=== PATIENT | male | born 1945 | race Caucasian/White ===

== ENCOUNTER → 2017-02-14 | Outpatient (CLI) | payer MEDICARE, BC ==
[2017-02-14 08:25] LABS: Basophils # (A) 0.1 k/uL (0-0.2); Basophils % (A) 1 %; CH 30.7; CHCM 32.6; Eosinophils # (A) 0.5 k/uL (0-0.7); Eosinophils % (A) 7 %; HCT 47.1 % (39.0-53.0); HDW 2.35; HGB 15.7 gm/dL (13.0-17.5); Luc # (Auto) 0.17; Luc % (Auto) 2; Lymphocytes # (A) 2.8 k/uL (1.0-4.8); Lymphocytes % (A) 36 %; MCH 31.6 pg (25.0-35.0); MCHC 33.3 g/dL (31.0-37.0); MCV 94.8 fL (80.0-100.0); Mean Platelet Volume 6.4; Monocytes # (A) 0.6 k/uL (0-1.0); Monocytes % (A) 8 %; Neutrophils # (A) 3.6 k/uL (1.3-7.7); Neutrophils % (A) 47 %; RBC 4.97 m/uL (4.30-5.90); WBC 7.7 k/uL (3.8-10.6); WBC (Perox) 7.56
[2017-02-14 08:47] LABS: ALT 57 U/L (21-72); AST 40 U/L (17-59); Alkaline Phosphatase 49 U/L (38-126); Anion Gap 11 mmol/L; Blood Urea Nitrogen 12 mg/dL (9-20); Calcium 9.2 mg/dL (8.4-10.2); Carbon Dioxide 26 mmol/L (22-30); Chloride 103 mmol/L (98-107); Cholesterol 195 mg/dL (<200); Glucose 90 mg/dL (74-99); HDL Cholesterol 53 mg/dL (40-60); Non-African American GFR(MDRD) >60 (>60 ml/min/1.73 sqM); Potassium 4.3 mmol/L (3.5-5.1); Sodium 140 mmol/L (137-145); Total Bilirubin 0.5 mg/dL (0.2-1.3); Total Protein 6.9 g/dL (6.3-8.2)
== END | disposition home or self-care (01) ==
LOC: LABWHC1 07:54
PROVIDERS: ATTEND Physician Assistant
DX: Z00.00 Encounter for general adult medical examination without abnormal findings (principal); E78.5 Hyperlipidemia, unspecified; E55.9 Vitamin D deficiency, unspecified; I10 Essential (primary) hypertension; Z12.5 Encounter for screening for malignant neoplasm of prostate; Z13.89 Encounter for screening for other disorder
CPT/HCPCS: 36415; 80053; 80061; 82306; 85025; 86803

== ENCOUNTER → 2018-02-14 | Outpatient (CLI) | payer MEDICARE, BC ==
[2018-02-14 10:04] LABS: Basophils # (A) 0.1 k/uL (0-0.2); Basophils % (A) 1 %; Eosinophils # (A) 0.5 k/uL (0-0.7); Eosinophils % (A) 8 %; HCT 46.3 % (39.0-53.0); HGB 15.2 gm/dL (13.0-17.5); Lymphocytes # (A) 2.2 k/uL (1.0-4.8); Lymphocytes % (A) 34 %; MCHC 32.7 g/dL (31.0-37.0); MCV 91.6 fL (80.0-100.0); Mean Platelet Volume 6.4; Monocytes # (A) 0.6 k/uL (0-1.0); Monocytes % (A) 8 %; Neutrophils # (A) 3.1 k/uL (1.3-7.7); Neutrophils % (A) 48 %; Platelet Count 329 k/uL (150-450); RBC 5.06 m/uL (4.30-5.90); RDW 13.4 % (11.5-15.5); WBC 6.5 k/uL (3.8-10.6)
[2018-02-14 10:55] LABS: Chloride 103 mmol/L (98-107)
[2018-02-14 10:57] LABS: ALT 56 U/L (21-72); AST 53 U/L (17-59); Alkaline Phosphatase 45 U/L (38-126); Anion Gap 10 mmol/L; Blood Urea Nitrogen 10 mg/dL (9-20); Calcium 9.2 mg/dL (8.4-10.2); Carbon Dioxide 28 mmol/L (22-30); Cholesterol 197 mg/dL (<200); Glucose 90 mg/dL (74-99); HDL Cholesterol 49 mg/dL (40-60); LDL Cholesterol,Calculated 129 mg/dL (0-99); Potassium 4.3 mmol/L (3.5-5.1); Sodium 141 mmol/L (137-145); Total Bilirubin 0.6 mg/dL (0.2-1.3); Total Protein 6.9 g/dL (6.3-8.2); Triglycerides 93 mg/dL (<150)
== END | disposition home or self-care (01) ==
LOC: LABWHC1 08:09
PROVIDERS: ATTEND Internal Medicine
DX: Z00.00 Encounter for general adult medical examination without abnormal findings (principal); I10 Essential (primary) hypertension
CPT/HCPCS: 36415; 80053; 80061; 85025

== ENCOUNTER → 2018-07-09 | Outpatient (CLI) | payer MEDICARE, BC ==
--- NOTE | 2018-07-09 15:08 | ECHOS ---
STRESS ECHOCARDIOGRAM INDICATIONS: Chest pain. MEDICATIONS: Simvastatin, losartan, baby aspirin, vitamin D3. BASELINE HEART RATE: 69 BASELINE BLOOD PRESSURE: 136/69 MAXIMUM HEART RATE: 143 MAXIMUM BLOOD PRESSURE: 206/72 85% MPHR: 128 100% MPHR: 150 METS: 7.1 MAXIMUM STAGE REACHED: 2 TOTAL EXERCISE TIME: 6:00 CLINICAL INFORMATION: Baseline rhythm sinus mechanism rate of 69, normal axis and intervals. Normal echocardiogram. Baseline blood pressure 136/69 mmHg. Patient exercised on Zan protocol for 6 minute reaching peak rate of 143 beats per minute which is above his 85% maximum predicted heart rate. Peak blood pressure 206/72 mmHg. Test was terminated secondary to fatigue. There was no chest pain. Electrocardiograph monitoring revealed no evidence of diagnostic ischemic ST deviation. FINDINGS: Baseline echocardiogram revealed normal wall motion. At peak exercise, there was normal wall motion augmentation with no hypokinesis or dyskinesis. CONCLUSION: 1. Average exercise tolerance with normal EKG response to exercise. 2. Normal stress echocardiogram with no evidence of stress-induced ischemia. MMODL / IJN: [id number] / [facility]
== END | disposition home or self-care (01) ==
LOC: RADNMMAIN 09:38
PROVIDERS: ATTEND Internal Medicine
DX: R07.9 Chest pain, unspecified (principal)
CPT/HCPCS: 93351

== ENCOUNTER → 2019-02-22 | Outpatient (CLI) | payer MEDICARE, BC ==
[2019-02-22 08:09] LABS: Appearance,Urine Clear (Clear); Bilirubin,Urine Negative (Negative); Blood,Urine Negative (Negative); Color,Urine Yellow; Glucose,Urine (UA) Negative (Negative); Ketones,Urine Negative (Negative); Leukocyte Esterase,Urine Negative (Negative); Nitrite,Urine Negative (Negative); Protein,Urine Negative (Negative); Specific Gravity,Urine 1.015 (1.001-1.035); Urobilinogen,Urine <2.0 mg/dL (<2.0)
[2019-02-22 08:10] LABS: Basophils % (A) 1 %; Eosinophils # (A) 0.5 k/uL (0-0.7); Eosinophils % (A) 6 %; HCT 47.9 % (39.0-53.0); Lymphocytes # (A) 2.5 k/uL (1.0-4.8); Lymphocytes % (A) 31 %; MCH 29.7 pg (25.0-35.0); MCHC 31.4 g/dL (31.0-37.0); MCV 94.7 fL (80.0-100.0); Mean Platelet Volume 6.3; Monocytes # (A) 0.6 k/uL (0-1.0); Monocytes % (A) 8 %; Neutrophils # (A) 4.3 k/uL (1.3-7.7); Neutrophils % (A) 52 %; Platelet Count 346 k/uL (150-450); RBC 5.06 m/uL (4.30-5.90); RDW 13.4 % (11.5-15.5); WBC 8.2 k/uL (3.8-10.6)
[2019-02-22 15:39] LABS: African American GFR (CKD) 99.2 (60.0-200.0); Albumin 4.5 g/dL (3.80-4.90); Albumin/Globulin Ratio 2.14 (1.60-3.17); Anion Gap 8.1 mmol/L (4.00-12.00); BUN/Creat Ratio 12.22 Ratio (12.00-20.00); Calcium 9.2 mg/dL (8.7-10.3); Carbon Dioxide 27.9 mmol/L (21.6-31.8); Chol/HDL Ratio 3.62; Globulin 2.1 g/dL (1.6-3.3); LDL Cholesterol,Calculated 116.6 mg/dL (0.0-131.0); Total Bilirubin 0.5 mg/dL (0.3-1.2); Total Protein 6.6 g/dL (6.2-8.2); VLDL Calculation 19.4 mg/dL (5.00-40.00)
== END ==
LOC: LABWHC1 07:36
PROVIDERS: ATTEND Internal Medicine
DX: I10 Essential (primary) hypertension (principal); E55.9 Vitamin D deficiency, unspecified
CPT/HCPCS: 36415; 80053; 80061; 81003; 82306; 85025

== ENCOUNTER → 2019-04-23 | Outpatient (CLI) | payer MEDICARE, BC ==
--- NOTE | 2019-04-23 12:10 | US ---
EXAMINATION TYPE: US abdomen complete DATE OF EXAM: 04/23/2019 COMPARISON: NONE CLINICAL HISTORY: R07.89 CHEST PAIN. Pt states indigestion and right shoulder pain EXAM MEASUREMENTS: Liver Length: 14.5 cm Gallbladder Wall: 0.3 cm CBD: 0.4 cm Spleen: 9.1 cm Right Kidney: 11.1 x 5.2 x 5.5 cm Left Kidney: 11.1 x 6.0 x 5.2 cm Pancreas: Obscured by bowel gas Liver: There is increased echogenicity of the hepatic parenchyma with diminished visualization of th e portal triads most commonly relating to hepatic steatosis and limiting evaluation for underlying he patic masses. Gallbladder: Appeared wnl Evidence for sonographic Chavez's sign: No CBD: wnl Spleen: wnl Right Kidney: Cyst upper pole= 5.5 x 5.1 x 5.5 cm Left Kidney: wnl Upper IVC: wnl Abd Aorta: Proximal portion obscured by overlying bowel gas, mid and distal appeared wnl The intrahepatic portion of the IVC and proximal abdominal aorta are within normal limits. There is no evidence of cholelithiasis. Common bile duct is unremarkable. The visualized portions of the patten creas are homogenous. The spleen is unremarkable. Kidneys are symmetric and free of hydronephrosis. . IMPRESSION: 1. Sonographic findings most commonly related to hepatic steatosis. Correlate with liver function antonia ts. 2. No sonographic evidence of cholelithiasis nor acute cholecystitis. 3. Benign-appearing right renal cyst measures up to 5.5 cm. 4. Obscuration of the pancreas by overlying bowel gas.
== END | disposition home or self-care (01) ==
LOC: RADUSWWP 10:59
PROVIDERS: ATTEND Family Medicine
DX: N28.1 Cyst of kidney, acquired (principal)
CPT/HCPCS: 76700

== ENCOUNTER → 2021-03-04 | Outpatient (CLI) | payer MEDICARE, BC ==
[2021-03-04 09:36] LABS: Appearance,Urine Clear (Clear); Bilirubin,Urine Negative (Negative); Blood,Urine Negative (Negative); Color,Urine Yellow; Glucose,Urine (UA) Negative (Negative); Ketones,Urine Negative (Negative); Leukocyte Esterase,Urine Negative (Negative); Nitrite,Urine Negative (Negative); Protein,Urine Negative (Negative); Specific Gravity,Urine 1.016 (1.001-1.035); Urobilinogen,Urine <2.0 mg/dL (<2.0)
[2021-03-04 21:30] LABS: Basophils # (A) 0.06 X 10*3/uL (0.00-0.10); Basophils % (A) 0.8 %; Eosinophils # (A) 0.55 X 10*3/uL (0.04-0.35); Eosinophils % (A) 7.3 %; HCT 49.5 % (39.6-50.0); HGB 15.6 g/dL (13.0-17.0); Lymphocytes # (A) 2.51 X 10*3/uL (0.90-5.00); Lymphocytes % (A) 33.2 %; MCH 30.3 pg (27.0-32.0); MCHC 31.5 g/dL (32.0-37.0); MCV 96.1 fL (80.0-97.0); Mean Platelet Volume 9.7 fL (9.5-12.2); Monocytes # (A) 0.97 X 10*3/uL (0.20-1.00); Monocytes % (A) 12.8 %; Neutrophils # (A) 3.42 X 10*3/uL (1.80-7.70); Neutrophils % (A) 45.4 %; Platelet Count 359 X 10*3/uL (140-440); RBC 5.15 X 10*6/uL (4.40-5.60); RDW 13.7 % (11.5-14.5); WBC 7.55 X 10*3/uL (4.50-10.00)
[2021-03-05 00:27] LABS: Albumin 4.2 g/dL (3.8-4.9); Albumin/Globulin Ratio 1.67 (1.60-3.17); Anion Gap 19.3 mmol/L (4.00-12.00); BUN/Creat Ratio 13.04 Ratio (12.00-20.00); Blood Urea Nitrogen 10.6 mg/dL (9.0-27.0); Calcium 9.2 mg/dL (8.7-10.3); Carbon Dioxide 15.6 mmol/L (21.6-31.8); Chol/HDL Ratio 4.52 Ratio; Globulin 2.5 g/dL (1.6-3.3); HDL Cholesterol 46.7 mg/dL (40.00-60.00); Potassium 4.5 mmol/L (3.5-5.5); Prostate Specific Antigen 1.8 ng/mL (0.00-6.50); T4, Free (Free Thyroxine) 0.96 ng/dL (0.800-1.800); Total Bilirubin 0.4 mg/dL (0.30-1.20); Total Protein 6.7 g/dL (6.2-8.2); Triglycerides 86.7 mg/dL (0.00-149.00); VLDL Calculation 17.34 mg/dL (5.00-40.00)
== END | disposition home or self-care (01) ==
LOC: LABWHC1 08:14
PROVIDERS: ATTEND Physician Assistant
DX: Z00.01 Encounter for general adult medical examination with abnormal findings (principal)
CPT/HCPCS: 36415; 80053; 80061; 81003; 82306; 84153; 84439; 84443; 85025

== ENCOUNTER 2021-10-13 09:11 | Emergency (ER) | payer MEDICARE, BC ==
[2021-10-13 09:17] VITALS: TEMP 98.1
--- NOTE | 2021-10-13 09:50 | ED ---
General Adult HPI - General Chief complaint: Recheck/Abnormal Lab/Rx Stated complaint: abn EKG Time Seen by Provider: 10/13/21 09:13 Source: patient, RN notes reviewed, old records reviewed Mode of arrival: ambulatory Limitations: no limitations - History of Present Illness Initial comments: 75-year-old male presents for evaluation from the urgent care. Patient was seen yesterday had EKG and laboratory testing performed and then subsequently return to the urgent care this morning. He had been sent to the emergency department with abnormal EKG. He had initially presented with cough and cold symptoms for the past 10 days. He was treated with steroids and antibiotics. No fever. No significant dyspnea. No central chest pain but he does have a upper chest tightness. - Related Data Home Medications Medication Instructions Recorded Confirmed Simvastatin [Zocor] 20 mg PO DAILY 07/25/15 10/13/21 Ascorbic Acid [Vitamin C] 500 mg PO DAILY 10/13/21 10/13/21 Aspirin EC [Ecotrin Low Dose] 81 mg PO DAILY 10/13/21 10/13/21 Cholecalciferol (Vitamin D3) 75 mcg PO DAILY 10/13/21 10/13/21 [Vitamin D3 (3000 Iu)] FLUoxetine HCL [PROzac] 10 mg PO DAILY 10/13/21 10/13/21 Famotidine 40 mg PO DAILY 10/13/21 10/13/21 Losartan Potassium [Cozaar] 50 mg PO DAILY 10/13/21 10/13/21 Multivitamins, Thera [Multivitamin 1 tab PO DAILY 10/13/21 10/13/21 (formulary)] Vitamin E [Vitamin E (1000 Iu = 1,000 unit PO DAILY 10/13/21 10/13/21 450 MG)] Allergies Allergy/AdvReac Type Severity Reaction Status Date / Time sulfamethoxazole Allergy Unknown Verified 10/13/21 10:42 [From Bactrim] trimethoprim [From Bactrim] Allergy Unknown Verified 10/13/21 10:42 Review of Systems ROS Statement: Those systems with pertinent positive or pertinent negative responses have been documented in the HPI. ROS Other: All systems not noted in ROS Statement are negative. Past Medical History Past Medical History: Hyperlipidemia, Hypertension History of Any Multi-Drug Resistant Organisms: None Reported Additional Past Surgical History / Comment(s): nasal surgery Past Psychological History: No Psychological Hx Reported Smoking Status: Never smoker Past Alcohol Use History: None Reported Past Drug Use History: None Reported General Exam Limitations: no limitations General appearance: alert, in no apparent distress Head exam: Present: atraumatic, normocephalic Eye exam: Present: normal appearance, PERRL ENT exam: Present: normal exam Neck exam: Present: normal inspection. Absent: tenderness, meningismus Respiratory exam: Present: normal lung sounds bilaterally. Absent: respiratory distress, wheezes, rales Cardiovascular Exam: Present: regular rate, normal rhythm GI/Abdominal exam: Present: soft. Absent: distended, tenderness, guarding Extremities exam: Present: normal inspection, normal capillary refill. Absent: pedal edema, joint swelling Neurological exam: Present: alert, oriented X3, CN II-XII intact. Absent: motor sensory deficit Psychiatric exam: Present: normal affect, normal mood Skin exam: Present: warm, dry, intact. Absent: cyanosis, diaphoretic Course Vital Signs 10/13/21 09:13 Temperature 98.1 F Pulse Rate 73 Respiratory 20 Rate Blood Pressure 180/82 O2 Sat by Pulse 98 Oximetry EKG Findings - EKG Comments: EKG Findings:: EKG: Ectopic atrial rhythm, P waves are downgoing, rate of 68, CA interval is 172, QRS duration 87, QTC 408, no ST segment changes. Medical Decision Making - Medical Decision Making 75-year-old male with cough and cold symptoms for the past 10 days, presenting for evaluation. Patient is well-appearing. No respiratory distress. Patient presented with abnormal EKG. He does have an ectopic rhythm without definitive ischemic changes. His symptoms 7 present for 10 days. He has a mild leukocytosis which is likely secondary to steroid use. He has normal white lites, negative troponin, negative: Admitted. I discussed case with Dr. Roberts regarding the ectopic rhythm, nothing to do at this time. Patient will follow- up with the primary care physician. Return parameters discussed. - Lab Data Result diagrams: 10/13/21 09:36 10/13/21 09:36 Lab Results 10/13/21 10/13/21 10/13/21 Range/Units 09:36 09:36 09:36 WBC 14.8 H (3.8-10.6) k/uL RBC 5.52 (4.30-5.90) m/uL Hgb 16.9 (13.0-17.5) gm/dL Hct 52.5 (39.0-53.0) % MCV 95.0 (80.0-100.0) fL MCH 30.6 (25.0-35.0) pg MCHC 32.2 (31.0-37.0) g/dL RDW 13.7 (11.5-15.5) % Plt Count 412 (150-450) k/uL MPV 7.3 Neutrophils % 58 % Lymphocytes % 28 % Monocytes % 9 % Eosinophils % 2 % Basophils % 1 % Neutrophils # 8.6 H (1.3-7.7) k/uL Lymphocytes # 4.2 (1.0-4.8) k/uL Monocytes # 1.3 H (0-1.0) k/uL Eosinophils # 0.4 (0-0.7) k/uL Basophils # 0.1 (0-0.2) k/uL PT 10.9 (9.0-12.0) sec INR 1.0 (<1.2) APTT 23.8 (22.0-30.0) sec Sodium 137 (137-145) mmol/L Potassium 4.3 (3.5-5.1) mmol/L Chloride 99 (98-107) mmol/L Carbon Dioxide 28 (22-30) mmol/L Anion Gap 10 mmol/L BUN 18 (9-20) mg/dL Creatinine 0.84 (0.66-1.25) mg/dL Est GFR (CKD-EPI)AfAm >90 (>60 ml/min/1.73 sqM) Est GFR (CKD-EPI)NonAf 87 (>60 ml/min/1.73 sqM) Glucose 84 (74-99) mg/dL Calcium 9.0 (8.4-10.2) mg/dL Magnesium 2.2 (1.6-2.3) mg/dL Total Bilirubin 0.5 (0.2-1.3) mg/dL AST 33 (17-59) U/L ALT 53 H (4-49) U/L Alkaline Phosphatase 58 (38-126) U/L CK-MB (CK-2) (0.0-2.4) ng/mL Troponin I (0.000-0.034) ng/mL NT-Pro-B Natriuret Pep pg/mL Total Protein 7.3 (6.3-8.2) g/dL Albumin 4.3 (3.5-5.0) g/dL Coronavirus (PCR) (Not Detectd) 10/13/21 10/13/21 10/13/21 Range/Units 09:36 09:36 09:36 WBC (3.8-10.6) k/uL RBC (4.30-5.90) m/uL Hgb (13.0-17.5) gm/dL Hct (39.0-53.0) % MCV (80.0-100.0) fL MCH (25.0-35.0) pg MCHC (31.0-37.0) g/dL RDW (11.5-15.5) % Plt Count (150-450) k/uL MPV Neutrophils % % Lymphocytes % % Monocytes % % Eosinophils % % Basophils % % Neutrophils # (1.3-7.7) k/uL Lymphocytes # (1.0-4.8) k/uL Monocytes # (0-1.0) k/uL Eosinophils # (0-0.7) k/uL Basophils # (0-0.2) k/uL PT (9.0-12.0) sec INR (<1.2) APTT (22.0-30.0) sec Sodium (137-145) mmol/L Potassium (3.5-5.1) mmol/L Chloride (98-107) mmol/L Carbon Dioxide (22-30) mmol/L Anion Gap mmol/L BUN (9-20) mg/dL Creatinine (0.66-1.25) mg/dL Est GFR (CKD-EPI)AfAm (>60 ml/min/1.73 sqM) Est GFR (CKD-EPI)NonAf (>60 ml/min/1.73 sqM) Glucose (74-99) mg/dL Calcium (8.4-10.2) mg/dL Magnesium (1.6-2.3) mg/dL Total Bilirubin (0.2-1.3) mg/dL AST (17-59) U/L ALT (4-49) U/L Alkaline Phosphatase (38-126) U/L CK-MB (CK-2) 10.0 H (0.0-2.4) ng/mL Troponin I <0.012 (0.000-0.034) ng/mL NT-Pro-B Natriuret Pep 37 pg/mL Total Protein (6.3-8.2) g/dL Albumin (3.5-5.0) g/dL Coronavirus (PCR) Not Detected (Not Detectd) Disposition Clinical Impression: Viral URI Disposition: HOME SELF-CARE Condition: Fair Instructions (If sedation given, give patient instructions): Upper Respiratory Infection (DC) Is patient prescribed a controlled substance at d/c from ED?: No Referrals: Ruthann Sullivan MD [Primary Care Provider] - 1-2 days Time of Disposition: 11:25
--- NOTE | 2021-10-13 09:53 | XR ---
EXAMINATION TYPE: XR chest 2V DATE OF EXAM: 10/13/2021 COMPARISON: NONE TECHNIQUE: PA and lateral views submitted. HISTORY: Chest pain FINDINGS: The lungs are clear and there is no pneumothorax, pleural effusion, or focal pneumonia. Nipple shad ow overlying the left lower lobe. Heart size normal. Hypertrophic and degenerative changes spine. Hyp erinflation suggests COPD. Arthropathy of the shoulders. IMPRESSION: 1. Correlate for COPD.
[2021-10-13 10:16] LABS: Basophils # (A) 0.1 k/uL (0-0.2); Basophils % (A) 1 %; Eosinophils # (A) 0.4 k/uL (0-0.7); Eosinophils % (A) 2 %; HCT 52.5 % (39.0-53.0); HGB 16.9 gm/dL (13.0-17.5); Lymphocytes # (A) 4.2 k/uL (1.0-4.8); Lymphocytes % (A) 28 %; MCH 30.6 pg (25.0-35.0); MCHC 32.2 g/dL (31.0-37.0); Mean Platelet Volume 7.3; Monocytes # (A) 1.3 k/uL (0-1.0); Monocytes % (A) 9 %; Neutrophils # (A) 8.6 k/uL (1.3-7.7); Neutrophils % (A) 58 %; Platelet Count 412 k/uL (150-450); RBC 5.52 m/uL (4.30-5.90); RDW 13.7 % (11.5-15.5); WBC 14.8 k/uL (3.8-10.6)
[2021-10-13 10:27] LABS: ALT 53 U/L (4-49); AST 33 U/L (17-59); African American GFR (CKD) >90 (>60 ml/min/1.73 sqM); Albumin 4.3 g/dL (3.5-5.0); Alkaline Phosphatase 58 U/L (38-126); Anion Gap 10 mmol/L; Blood Urea Nitrogen 18 mg/dL (9-20); Carbon Dioxide 28 mmol/L (22-30); Chloride 99 mmol/L (98-107); Glucose 84 mg/dL (74-99); Magnesium 2.2 mg/dL (1.6-2.3); Non-African American GFR(CKD) 87 (>60 ml/min/1.73 sqM); Potassium 4.3 mmol/L (3.5-5.1); Sodium 137 mmol/L (137-145); Total Bilirubin 0.5 mg/dL (0.2-1.3); Total Protein 7.3 g/dL (6.3-8.2)
[2021-10-13 10:35] LABS: Partial Thromboplastin Time 23.8 sec (22.0-30.0); Prothrombin Time 10.9 sec (9.0-12.0)
[2021-10-13 10:46] LABS: Troponin I <0.012 ng/mL (0.000-0.034)
[2021-10-13 11:35] VITALS: BP 155/84; PULSE 78; RESP 18
== END 2021-10-13 11:35 | disposition home or self-care (01) ==
LOC: EC 09:11
DX: J06.9 Acute upper respiratory infection, unspecified (principal); D72.829 Elevated white blood cell count, unspecified; I10 Essential (primary) hypertension; E78.5 Hyperlipidemia, unspecified; Z88.2 Allergy status to sulfonamides; Z79.82 Long term (current) use of aspirin; Z20.822 Contact with and (suspected) exposure to COVID-19; Z79.899 Other long term (current) drug therapy
CPT/HCPCS: 36415; 71046; 80053; 82553; 83735; 83880; 84484; 85025; 85610; 85730; 87635; 93005; 99284

== ENCOUNTER → 2021-12-03 | Outpatient (CLI) | payer MEDICARE, BC ==
[2021-12-03 10:51] LABS: African American GFR (CKD) >90 (>60 ml/min/1.73 sqM); Blood Urea Nitrogen 11 mg/dL (9-20); Non-African American GFR(CKD) 90 (>60 ml/min/1.73 sqM)
--- NOTE | 2021-12-03 12:17 | CT ---
EXAMINATION TYPE: CT angio chest DATE OF EXAM: 12/03/2021 COMPARISON: Chest x-ray 10/13/2021 HISTORY: Shortness of breath CT DLP: 330.5 mGycm Automated exposure control for dose reduction was used. CONTRAST: CTA scan of the thorax is performed with IV Contrast, patient injected with 65 mL of Isovue 370, pulm onary embolism protocol. MIP images are created and reviewed. 3D reconstructed images are created o n an independent workstation and reviewed. FINDINGS: LUNGS: The lungs are grossly clear, there is no concerning parenchymal mass or nodule identified. T here is no pleural effusion or pneumothorax seen. The tracheobronchial tree is patent. AORTA: Aortic root measures 4 cm. Ascending aorta measures 4.9 cm. There is some artifact present. A esperanza is not optimally enhanced. No evident dissection. Proximal descending aorta measures approximate ly 3.1 cm. The aorta at the level of the hiatus measures approximately 2.4 cm. MEDIASTINUM: There is satisfactory enhancement of the pulmonary artery and its branches, there is no CT evidence for pulmonary embolism. There are no greater than 1 cm hilar or mediastinal lymph nodes. No pericardial effusion is seen. There are coronary artery calcifications OTHER: Right lobe of the thyroid is enlarged. Four super aortic branch vessels are present. 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 Upper pole exophytic cyst noted at the right kidney measuring approximat aretha 5.7 cm, small lipoma present along the right lateral lower chest measuring 2.5 cm in AP dimension along the musculature. IMPRESSION: NO EVIDENT PULMONARY EMBOLUS. ASCENDING AORTIC ANEURYSM. FOLLOW-UP IS RECOMMENDED. Additional finding s above.
== END | disposition home or self-care (01) ==
LOC: RADCTMAIN 10:00
PROVIDERS: ATTEND Internal Medicine Critical Care Medicine
DX: R06.02 Shortness of breath (principal); I71.4 Abdominal aortic aneurysm, without rupture
CPT/HCPCS: 82565; 84520; 71275; 36415; Q9967

== ENCOUNTER → 2022-03-15 | Outpatient (CLI) | payer MEDICARE, BC ==
[2022-03-15 14:29] LABS: Basophils # (A) 0.04 X 10*3/uL (0.00-0.10); Basophils % (A) 0.5 %; Eosinophils # (A) 0.44 X 10*3/uL (0.04-0.35); Eosinophils % (A) 5.2 %; HCT 49.1 % (39.6-50.0); HGB 16.3 g/dL (13.0-17.0); Immature Grans, Automated 0.4 %; Lymphocytes # (A) 2.23 X 10*3/uL (0.90-5.00); Lymphocytes % (A) 26.5 %; MCH 30.9 pg (27.0-32.0); MCHC 33.2 g/dL (32.0-37.0); Mean Platelet Volume 9.7 fL (9.5-12.2); Monocytes # (A) 1.01 X 10*3/uL (0.20-1.00); NRBC Per 100 WBC 0 /100 WBCS (0.0-0.0); Neutrophils # (A) 4.66 X 10*3/uL (1.80-7.70); Neutrophils % (A) 55.4 %; Platelet Count 352 X 10*3/uL (140-440); RBC 5.28 X 10*6/uL (4.40-5.60); RDW 13.4 % (11.5-14.5); WBC 8.41 X 10*3/uL (4.50-10.00)
[2022-03-15 14:45] LABS: ALT 55 U/L (10-49); AST 51 U/L (14-35); African American GFR (CKD) 97.2 (60.0-200.0); Albumin 4.4 g/dL (3.8-4.9); Albumin/Globulin Ratio 1.47 (1.60-3.17); Alkaline Phosphatase 63 U/L (41-126); BUN/Creat Ratio 10.22 Ratio (12.00-20.00); Blood Urea Nitrogen 9.2 mg/dL (9.0-27.0); Calcium 9.4 mg/dL (8.7-10.3); Carbon Dioxide 25.5 mmol/L (20.0-27.5); Chloride 101 mmol/L (96-109); Chol/HDL Ratio 2.72 Ratio; Glucose 101 mg/dL (70-110); LDL Cholesterol,Calculated 75.7 mg/dL (0.0-131.0); Non-African American GFR(CKD) 83.8 (60.0-200.0); Potassium 4.3 mmol/L (3.5-5.5); Sodium 139 mmol/L (135-145); Total Protein 7.4 g/dL (6.2-8.2)
[2022-03-15 15:55] LABS: Appearance,Urine Clear (Clear); Bilirubin,Urine Negative (Negative); Blood,Urine Negative (Negative); Color,Urine Yellow (Yellow); Ketones,Urine Negative (Negative); Nitrite,Urine Negative (Negative); PH, Urine 6.5 (5.0-8.0); Specific Gravity,Urine 1.014 (1.001-1.030)
== END | disposition home or self-care (01) ==
LOC: LABWHC1 08:48
PROVIDERS: ATTEND Family Medicine
DX: Z00.01 Encounter for general adult medical examination with abnormal findings (principal)
CPT/HCPCS: 84439; 80061; 80053; 84443; 85025; 81003; 82306; 83036; 36415; G0103

== ENCOUNTER → 2023-06-15 | Outpatient (CLI) | payer MEDICARE ==
[2023-06-15 16:39] LABS: Basophils # (A) 0.06 X 10*3/uL (0.00-0.10); Basophils % (A) 0.8 %; Eosinophils % (A) 6.8 %; HCT 46.6 % (39.6-50.0); HGB 15.2 g/dL (13.0-17.0); Lymphocytes # (A) 2.34 X 10*3/uL (0.90-5.00); Lymphocytes % (A) 31.7 %; MCH 30.5 pg (27.0-32.0); MCHC 32.6 g/dL (32.0-37.0); MCV 93.4 FL (80.0-97.0); Mean Platelet Volume 9.9 FL (9.5-12.2); Monocytes # (A) 0.87 X 10*3/uL (0.20-1.00); Monocytes % (A) 11.8 %; NRBC Per 100 WBC 0 X 10*3/uL (0.00-0.01); Neutrophils # (A) 3.59 X 10*3/uL (1.80-7.70); Neutrophils % (A) 48.6 %; Platelet Count 325 X 10*3/uL (140-440); RBC 4.99 X 10*6/uL (4.40-5.60); RDW 13.6 % (11.5-14.5); WBC 7.38 X 10*3/uL (4.50-10.00)
[2023-06-15 17:13] LABS: ALT 45 U/L (10-49); AST 38 U/L (14-35); Albumin 4.1 g/dL (3.8-4.9); Albumin/Globulin Ratio 1.78 Ratio (1.60-3.17); Alkaline Phosphatase 54 U/L (41-126); BUN/Creat Ratio 17.75 Ratio (12.00-20.00); Blood Urea Nitrogen 14.2 mg/dL (9.0-27.0); Calcium 9.6 mg/dL (8.7-10.3); Carbon Dioxide 25.5 mmol/L (21.6-31.8); Chloride 104 mmol/L (96-109); Globulin 2.3 g/dL (1.6-3.3); Glucose 94 mg/dL (70-110); LDL Cholesterol,Calculated 67.7 mg/dL (0.0-131.0); Potassium 4.9 mmol/L (3.5-5.5); Prostate Specific Antigen 2.26 ng/mL (0.000-6.500); Sodium 141 mmol/L (135-145); T4, Free (Free Thyroxine) 1.02 ng/dL (0.80-1.80); Total Bilirubin 0.5 mg/dL (0.3-1.2); Total Protein 6.4 g/dL (6.2-8.2)
[2023-06-15 17:15] LABS: Appearance,Urine Clear (Clear); Bilirubin,Urine Negative (Negative); Blood,Urine Negative (Negative); Color,Urine Yellow (Yellow); Ketones,Urine Negative (Negative); Nitrite,Urine Negative (Negative); PH, Urine 6.5; Specific Gravity,Urine 1.016 (1.001-1.030)
== END | disposition home or self-care (01) ==
LOC: LABWHC1 09:52
PROVIDERS: ATTEND Physician Assistant
DX: Z12.5 Encounter for screening for malignant neoplasm of prostate (principal); I10 Essential (primary) hypertension
CPT/HCPCS: 36415; 80053; 80061; 81003; 82306; 83036; 84153; 84439; 84443; 85025

== ENCOUNTER → 2023-11-15 | Outpatient (CLI) | payer MEDICARE ==
--- NOTE | 2023-11-15 11:50 | CT ---
EXAMINATION TYPE: CT chest wo con CT DLP: 440.4 mGycm, Automated exposure control for dose reduction was used. DATE OF EXAM: 11/15/2023 11:31 AM COMPARISON: CTA chest 11/28/2022, 12/03/2021. CLINICAL INDICATION:Male, 77 years old with history of I71.20 THORACIC AORTIC ANEURYSM, WITHOUT RUPTU RE,; PHH, Follow up thoracic aortic aneurysm, without rupture. TECHNIQUE: Multiple axial images were obtained through the chest without IV contrast. Lack of IV or o ral contrast limits evaluation of solid and hollow organ viscera. . Coronal and sagittal reformats re viewed. FINDINGS: LUNGS/ PLEURA: No pleural effusion, pneumothorax, or focal consolidation. Incidental azygous fissure. No suspicious pulmonary nodule or mass. AIRWAY: Patent and unremarkable.. HEART: Mildly prominent in size. No pericardial effusion. Mild to moderate coronary arterial calcific ations. MEDIASTINUM: No gross evidence of adenopathy. VASCULATURE: Four-vessel aortic arch. Similar aortic root aneurysmal dilatation measuring up to 4.0 cm. Similar ascending thoracic aortic aneurysm measuring up to 4.9 cm. Descending thoracic aorta daniel ures up to 2.7 cm. No evidence for intramural hematoma. Cannot assess for dissection due to lack of i ntravenous contrast. MUSCULOSKELETAL: No acute osseous abnormalities. No aggressive osseous lesion. Multilevel anterior os teophytosis. SOFT TISSUES/LYMPH NODES: Small right lateral chest wall lipoma is redemonstrated. LOWER NECK: Asymmetrically enlarged right thyroid lobe again demonstrated. UPPER ABDOMEN: Stable complex right superior pole renal cystic lesion with thin or focal calcificatio n. IMPRESSION: 1. Stable ascending thoracic aortic aneurysm measuring up to 4.9 cm. Similar aneurysmal dilatation of the aortic root measuring up to 4.0 cm. 2. Stable partially visualized mildly complex right renal cyst.
== END | disposition home or self-care (01) ==
LOC: RADCTMAIN 11:10
PROVIDERS: ATTEND Surgery
DX: I71.21 Aneurysm of the ascending aorta, without rupture (principal); N28.1 Cyst of kidney, acquired; I12.0 Hypertensive chronic kidney disease with stage 5 chronic kidney disease or end stage renal disease
CPT/HCPCS: 71250

== ENCOUNTER → 2024-07-23 | Outpatient (CLI) | payer MEDICARE ==
--- NOTE | 2024-07-23 15:34 | CT ---
EXAMINATION TYPE: CT brain wo con CT DLP: 1133.3 mGycm, Automated exposure control for dose reduction was used. DATE OF EXAM: 07/23/2024 3:18 PM COMPARISON: CT Brain and cspine facial bones 07/25/2015 CLINICAL INDICATION:Male, 78 years old with history of S09.90XA UNSPECIFIED INJURY OF HEAD, Fall at a bout 1pm today, hit back of head has visible injury. TECHNIQUE: Brain: Multiple axial CT images of the brain were obtained without IV contrast. . Coronal and sagitta l reformats reviewed. FINDINGS: Brain: Extra-axial spaces: No abnormal extra-axial fluid collections. Ventricular system: Within normal limits Cerebral parenchyma: Age-related cerebral cortical volume loss. No acute intraparenchymal hemorrhage or mass effect. The marquez-white junction is well differentiated. Scattered hypoattenuating areas are seen within the periventricular white matter. Cerebellum: Unremarkable. Mass effect: No evidence of midline shift. Intracranial vasculature: unremarkable Soft tissues: Normal. Calvarium/osseous structures: No depressed skull fracture. Paranasal sinuses and mastoid air cells: Mild to moderate scattered paranasal sinus disease. Postsurg ical changes of the medial lew of the bilateral maxillary sinuses and from ethmoidectomy. Visualized orbits: Orbital contents are intact. IMPRESSION: 1. No acute intracranial process. 2. Nonspecific white matter changes, likely secondary to chronic small vessel ischemic disease. 3. Mild to moderate paranasal sinus disease. [facility], , 07/23/2024 3:32 PM
== END | disposition home or self-care (01) ==
LOC: RADCTMAIN 14:52
PROVIDERS: ATTEND Emergency Medicine
DX: S09.90XA Unspecified injury of head, initial encounter (principal); R90.82 White matter disease, unspecified; J34.89 Other specified disorders of nose and nasal sinuses
CPT/HCPCS: 70450

== ENCOUNTER → 2024-08-28 | Outpatient (CLI) | payer MEDICARE ==
[2024-08-28 21:05] LABS: BUN/Creat Ratio 15.62 Ratio (12.00-20.00); Blood Urea Nitrogen 12.5 mg/dL (9.0-27.0); Calcium 9.6 mg/dL (8.7-10.3); Carbon Dioxide 22.6 mmol/L (21.6-31.8); Chloride 101 mmol/L (96-109); Glucose 100 mg/dL (70-110); Magnesium 2.1 mg/dL (1.5-2.4); Potassium 4.5 mmol/L (3.5-5.5); Sodium 137 mmol/L (135-145)
== END | disposition home or self-care (01) ==
LOC: LABWHC1 13:36
PROVIDERS: ATTEND Internal Medicine Clinical Cardiac Electrophysiology
DX: I10 Essential (primary) hypertension (principal)
CPT/HCPCS: 36415; 80048; 83735